=== PATIENT | female | born 1980 | race Caucasian/White ===

== ENCOUNTER 2021-06-20 11:09 | Outpatient (CLI) | payer OTHER, SELFPAY ==
--- NOTE | ~2021-06-20 | XR_ITS ---
EXAMINATION: [id number] INDICATION: Rib pain, pleurodynia TECHNIQUE: A frontal view of the chest and 3 views of the right ribs were obtained. COMPARISON: None. FINDINGS: The lungs are free of acute opacities. There is no pleural effusion or pneumothorax. The ca rdiomediastinal silhouette is normal. The visualized bones and soft tissues are unremarkable. No disp laced rib fracture is identified. IMPRESSION: 1. No acute cardiopulmonary abnormality or evidence of displaced rib fracture. Reviewed, dictated and finalized at location B.
== END 2021-06-20 11:10 | disposition home or self-care (01) ==
LOC: ANHIMG 11:15
PROVIDERS: PCP Nurse Practitioner Family; Visit Provider Nurse Practitioner Family
DX: R07.81 Pleurodynia (principal)
CPT/HCPCS: 71101

== ENCOUNTER 2021-12-11 10:00 | Emergency (ER) | payer OTHER, SELFPAY ==
--- NOTE | 2021-12-11 10:06 | ED.URI ---
HPI - URI/Sore Throat General Chief Complaint: Upper Respiratory Infection Stated Complaint: throat irritation,ears popping Time Seen by Provider: 12/11/21 10:23 Source: patient and RN notes reviewed Mode of arrival: ambulatory Limitations: no limitations History of Present Illness HPI Narrative: 31-year-old female presents with concern for cough, lower throat pain with coughing. Reports her daughter was tested for strep and COVID last week and tested positive for strep, negative for COVID. Patient denies sore throat, however is concerned for strep throat due to her exposure. She denies exposure to COVID. She reports she was sent home from work because she was coughing. She denies any [id number] intervention. Denies fever, bodies, chills, sweats. MD elicited complaint: cough Related Data Home Medications Medication Instructions Recorded Confirmed medroxyprogesterone [Depo-Provera 150 mg IM [id number] 12/11/21 12/11/21 Contraceptive] Allergies Allergy/AdvReac Type Severity Reaction Status Date / Time No Known Allergies Allergy Verified 12/11/21 10:20 Review of Systems Review of Systems: CONSTITUTIONAL: Denies malaise, chills, sweats, or fever. EYES: Denies visual changes, redness, or discharge. ENT: Reports rhinorrhea, congestion, lower throat pain. Denies sinus pain, otalgia and sore throat. CARDIOVASCULAR: Denies chest pain, palpitations, or edema. RESPIRATORY: Reports cough. Denies dyspnea. GASTROINTESTINAL: Denies abdominal pain, nausea, vomiting, diarrhea SKIN: Denies rash or itching. MUSCULOSKELETAL: Denies myalgia. NEUROLOGIC: Denies headache. All systems reviewed & are unremarkable except as noted in HPI and below PMFSH Family History Family History (Updated 09/03/18 @ 09:46 by DOCTOR UNKNOWN) Grandparent Diabetes mellitus Mother Patient's mother is in good health Father Patient's father is in good health Comments At time of signature, agree with nursing past medical, surgical, social and family history. There is no relevant family history pertinent to the presenting complaint Exam Narrative: GENERAL: Well-appearing, well-nourished, and in no acute distress. HEAD: Normocephalic EYES: PERRLA, conjunctivae clear ENT: Nares clear, clear discharge. Mucous membranes moist. TM pearly deng with dull light reflex bilaterally; no tragal tenderness. Oropharynx not erythematous without lesions. Tonsils not enlarged and without exudate, no drooling, no hoarseness, no trismus, uvula midline. NECK: Supple. No lymphadenopathy CHEST: Clear to auscultation, breath sounds equal. No wheezing, rhonchi, rales, or stridor. No respiratory distress, speaks in full sentences. HEART: Regular rate and rhythm. No murmur heard. SKIN: Warm, dry, no rash. NEURO: Alert and oriented x3. PSYCH: Normal mood and affect Course Course Emergency Course: Patient is aware of diagnosis, understands and agrees to treatment plan. Anticipatory guidance given. Patient agrees to follow-up as directed and is aware of reasons to seek care at the emergency department. Portions of this record may have been created with voice recognition software Level of Care: Express Care Visit Vital Signs Vital signs: Reviewed. MDM - URI/Sore Throat MDM Narrative Medical decision making narrative: Differential diagnosis considered: Dietrich virus, strep pharyngitis, allergic rhinitis, upper respiratory tract infection, sinusitis, rhinosinusitis, nasopharyngitis. viral pharyngitis, otitis media, otitis externa, pneumonia, bronchitis, viral cough syndrome, viral syndrome, and influenza. Exam findings show no acute concerns or changes; patient is non-toxic appearing and is in no distress. Patient is appropriate for outpatient treatment and follow-up. Lab Data Attestation: I reviewed the patient's lab results. Critical Care Time Critical Care Time Critical Care Time: No Discharge Plan Discharge Clinical Impression: Upper respiratory infection
[2021-12-11 10:14] VITALS: BP 130/88; PULSE 87; RESP 18; TEMP 37.1; O2SAT 100
[2021-12-12 20:41] LABS: SARS-CoV-2 RNA PCR Negative
== END 2021-12-11 10:46 | disposition home or self-care (01) ==
PROVIDERS: Emergency Provider Nurse Practitioner; PCP Nurse Practitioner Family
DX: J06.9 Acute upper respiratory infection, unspecified (principal); Z20.822 Contact with and (suspected) exposure to COVID-19
CPT/HCPCS: 87081; 87880; 99213; C9803; G0463; U0003; U0005

== ENCOUNTER 2022-05-08 11:30 | Emergency (ER) | payer OTHER, SELFPAY ==
[2022-05-08 11:45] VITALS: BP 122/73; PULSE 85; RESP 18; TEMP 36.8; O2SAT 100
--- NOTE | 2022-05-08 12:01 | ED.BACK ---
HPI - Back Pain/Injury General Chief Complaint: Back Pain/Injury Stated Complaint: Neck,Shoulder,Upper Back Pain Time Seen by Provider: 05/08/22 11:50 Source: patient Mode of arrival: ambulatory Limitations: no limitations History of Present Illness HPI Narrative: 41-year-old female presents with complaint of right-sided neck and upper back pain. Reports pain started 3 days ago. Was talking on her phone to left ear and phone began to drop so she flung her neck to the left side to grab phone between neck and shoulder. Reports shooting, sharp pain to right side of neck. Has been taking ibuprofen and Tylenol and applying ice and heat with no relief of pain. Is also using an [id number] muscle cream. Reports that neck feels stiff. Denies numbness tingling, no weakness to upper extremities. All systems reviewed and negative except as noted above. Related Data Home Medications Medication Instructions Recorded Confirmed medroxyprogesterone 150 mg/mL 150 mg IM [id number] 12/11/21 05/08/22 intramuscular suspension Allergies Allergy/AdvReac Type Severity Reaction Status Date / Time No Known Allergies Allergy Verified 05/08/22 11:38 Review of Systems Review of Systems: CONSTITUTIONAL: Denies fever, chills, or sweats. EYES: Denies visual changes, redness, or discharge. ENT: Denies rhinorrhea, congestion, sore throat, or otalgia. CARDIOVASCULAR: Denies chest pain, palpitations, or edema. RESPIRATORY: Denies cough or dyspnea. GASTROINTESTINAL: Denies abdominal pain, nausea, vomiting, or diarrhea. GENITOURINARY: Denies dysuria or hematuria. SKIN: Denies rash or itching. MUSCULOSKELETAL: Denies back pain, joint pain, or myalgia. Reports right-sided neck pain with stiffness. NEUROLOGIC: Denies headache, numbness, or weakness. PSYCHIATRIC: Denies anxiety or depression. All other systems reviewed are negative, except as documented in HPI. [facility] Family History Family History (Updated 09/03/18 @ 09:46 by DOCTOR UNKNOWN) Grandparent Diabetes mellitus Mother Patient's mother is in good health Father Patient's father is in good health Comments At time of signature, agree with nursing past medical, surgical, social and family history. There is no relevant family history pertinent to the presenting complaint. Exam Narrative: GENERAL: This is a well-nourished, well-developed patient, in no apparent distress. HEAD: normocephalic, atraumatic. EYES: PERRL. Sclera clear/white. Vision is grossly intact. EARS: External ears normal NOSE: External nose normal NECK: Neck supple, without lymphadenopathy, masses or thyromegaly. Tenderness to right trapezius muscle to right side of neck extending into right upper back. Range of motion to neck is decreased due to pain. CARDIOVASCULAR: Regular rate and rhythm without murmurs, gallops, or rubs. RESPIRATORY: Clear to auscultation. Breath sounds equal bilaterally. No wheezes, rales, or rhonchi. SKIN: warm, Dry, intact with no suspicious lesions or rash, good texture and turgor. NEURO: awake, alert, and oriented to person, place and time. There were no obvious focal neurologic abnormalities. EXTREMITIES: Normal range of motion to all extremities. Course Course Level of Care: Express Care Visit Vital Signs Vital signs: Vital Signs Temperature 36.8 C 05/08/22 11:45 Pulse Rate 85 05/08/22 11:45 Respiratory Rate 18 05/08/22 11:45 Blood Pressure 122/73 05/08/22 11:45 Pulse Oximetry 100 05/08/22 11:45 Oxygen Delivery Room Air 05/08/22 11:45 Temperature 36.8 C 05/08/22 11:45 Pulse Rate 85 05/08/22 11:45 Respiratory Rate 18 05/08/22 11:45 Blood Pressure 122/73 05/08/22 11:45 Pulse Oximetry 100 05/08/22 11:45 Oxygen Delivery Room Air 05/08/22 11:45 Reviewed MDM - Back Pain/Injury MDM Narrative Medical decision making narrative: Patient is aware of diagnosis, understands and agrees to treatment plan. Anticipatory guidance g
== END 2022-05-08 11:59 | disposition home or self-care (01) ==
PROVIDERS: Emergency Provider Nurse Practitioner Family; PCP Nurse Practitioner Family
DX: S46.811A Strain of other muscles, fascia and tendons at shoulder and upper arm level, right arm, initial encounter (principal); X50.9XXA Other and unspecified overexertion or strenuous movements or postures, initial encounter
CPT/HCPCS: 99213; G0463

== ENCOUNTER 2022-12-15 15:41 | Outpatient (CLI) | payer OTHER, SELFPAY ==
--- NOTE | ~2022-12-15 | XR_ITS ---
EXAMINATION: XR_RIBSBI_CR Exam Date/Time: 12/15/2022 15:58 RN CLINICIAN HISTORY: R L. LOWER LATERAL RIB PAIN, NO INJURIES. Comparison: 06/20/2021. RESULT: Lines, tubes, and devices: None. Lungs and pleura: Diffuse reticulonodular opacities. Cardiothymic silhouette: Stable. Other: No acute osseous or upper abdominal finding. IMPRESSION: Pulmonary opacities may represent bronchiolitis, as can be seen with atypical infection, asthma, aspi ration, and small airways disease. No acute osseous finding in the ribs. Reviewed, dictated and finalized at location K. CLINICIAN IMPRESSION: Pulmonary opacities may represent bronchiolitis, as can be seen with atypical i nfection, asthma, aspiration, and small airways disease. No acute osseous findi ng in the ribs.
== END 2022-12-15 15:42 | disposition home or self-care (01) ==
PROVIDERS: PCP Nurse Practitioner Family; Visit Provider Nurse Practitioner Family
DX: R07.81 Pleurodynia (principal); R91.8 Other nonspecific abnormal finding of lung field
CPT/HCPCS: 71110

== ENCOUNTER 2023-04-30 11:52 | Emergency (ER) | payer OTHER, SELFPAY ==
[2023-04-30 12:22] VITALS: BP 106/68; PULSE 96; RESP 18; TEMP 37.2; O2SAT 98
--- NOTE | 2023-04-30 12:48 | ED.ABDPAIN ---
HPI - Abdominal Pain General Chief Complaint: Abdominal Pain Stated Complaint: lt side pain Time Seen by Provider: 04/30/23 13:07 Source: patient, RN notes reviewed and old records reviewed Mode of arrival: ambulatory Limitations: no limitations History of Present Illness HPI narrative: 42-year-old female presents to the [facility] with left abdominal pain. Patient states that at 9:30 a.m. this morning started with sharp left lower quadrant abdominal pain. Denies any urinary symptoms. States it has just been getting worse only thing that makes it better is lying flat. Denies any blood in her urine. States she had a normal bowel movement last night. Denies any flank pain. Denies fevers. Onset (ago): hour(s) Related Data Home Medications Medication Instructions Recorded Confirmed medroxyprogesterone 150 mg/mL 150 mg IM [id number] 12/11/21 04/30/23 intramuscular suspension Allergies Allergy/AdvReac Type Severity Reaction Status Date / Time No Known Allergies Allergy Verified 04/30/23 12:42 Review of Systems Review of Systems: All systems reviewed & are unremarkable except as noted in HPI and below Constitutional: Constitutional: Reports no additional constitutional complaints Eyes: Eyes: Reports no additional eye complaints ENT: Reports system reviewed and no additional complaints, except as documented Cardiovascular: Cardiovascular: Reports no additional cardiovascular complaints, Denies chest pain and Denies dyspnea Respiratory: Respiratory: Reports no additional respiratory complaints, Denies chest congestion, Denies cough and Denies dyspnea Gastrointestinal: Gastrointestinal: Reports as per HPI, Reports abdominal pain (Left lower), Denies nausea and Denies vomiting Musculoskeletal: Musculoskeletal: Reports no additional musculoskeletal complaints Integumentary/Breasts: Skin/Breast: Reports system reviewed and no additional complaints, except as docu Neurologic: Reports system reviewed and no additional complaints, except as documented Psychiatric: Psychiatric: Reports no additional psychiatric complaints Allergic/Immunologic: Allergic/Immunologic: Reports no additional allergic/immunologic complaints [facility] Family History Family History Grandparent Diabetes mellitus Mother Patient's mother is in good health Father Patient's father is in good health Comments At the time of my signature, I reviewed and agree with the nursing past medical, surgical, social, and family history. There is no relevant family history pertinent to the patient complaint. Exam Const: General: cooperative, healthy appearing, comfortable, no acute distress, well developed, alert and well nourished Nutritional Appearance: well nourished Orientation/consciousness: patient oriented x3 Limitations: no limitations HENMT: Head: normal to inspection Ears: hearing grossly normal bilaterally and external ears normal Face/Nose/Sinus: Normal external nose present, Normal nares present, Normal nasal mucous membranes and turbinates present and normal facial exam Face and sinus: normal facial exam Mouth: Yes Normal oral and palatal mucosa present, Yes lip normal and Yes moist mucous membranes Throat: posterior oropharynx normal and uvula midline Eyes: General: appearance normal, both eyes and all related structures Alignment and Position: alignment normal Periorbital: periorbital findings normal Pupils: Equal, round and reactive pupils present EOM: EOMs intact bilaterally Neck: Neck: normal visual inspection, full ROM, no lymphadenopathy and no meningeal signs Chest: Chest palpation & inspection: normal inspection of the chest Resp: Effort & Inspection: normal respiratory effort and able to speak in complete sentences Auscultation: clear to auscultation bilaterally, no crackles, no rales, no rhonchi and no wheezes Cardio: Rate: regular rate Rhythm: regular rhythm GI: I
== END 2023-04-30 13:30 | disposition short-term general hospital (02) ==
PROVIDERS: Emergency Provider Nurse Practitioner; PCP Nurse Practitioner Family
DX: R10.32 Left lower quadrant pain (principal)
CPT/HCPCS: 99212; G0463

== ENCOUNTER 2023-05-07 08:47 | Emergency (ER) | payer OTHER, SELFPAY ==
[2023-05-07 08:56] VITALS: BP 120/76; PULSE 100; RESP 19; TEMP 36.1; O2SAT 100
--- NOTE | 2023-05-07 11:13 | ED.NECK ---
HPI - Neck Pain/Injury General Chief Complaint: Neck Pain/Injury Stated Complaint: neck pain Time Seen by Provider: 05/07/23 10:06 Source: patient Mode of arrival: ambulatory Limitations: no limitations History of Present Illness HPI Narrative: Patient is 42 years old white female presents with pain and stiffness at the right side of her neck started 3 days ago, gradually getting worse. Is not getting better on home medications. 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 Patient denies any fever, chills, nausea, vomiting, trauma, difficulty breathing or swallowing stroke team MD complaint: neck pain Related Data Home Medications Medication Instructions Recorded Confirmed medroxyprogesterone 150 mg/mL 150 mg IM [id number] 12/11/21 04/30/23 intramuscular suspension Allergies Allergy/AdvReac Type Severity Reaction Status Date / Time No Known Allergies Allergy Verified 04/30/23 12:42 Review of Systems Review of Systems: All systems reviewed & are unremarkable except as noted in HPI and below PMFSH Family History Family History Grandparent Diabetes mellitus Mother Patient's mother is in good health Father Patient's father is in good health Exam Narrative: General appearance: Well-developed, well-nourished Skin: Normal color Head: Normocephalic, nontraumatic Eyes: Clear conjunctiva ENT: Oropharynx normal, ears normal, nose normal Neck: Diffuse tenderness right side of neck, spasm, no bruises, no rash, no lymphadenopathy, no mass, limited range of motion because of pain, diffuse pain right upper back with palpation Chest and respiratory: Airway patent, no respiratory distress, no accessory muscle use Heart: Regular rate/rhythm Abdomen: Soft, nontender, no organomegaly, quiet bowel sounds Vascular: Normal peripheral pulses, normal capillary refill. 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 Moderate improvement after ibuprofen and Tylenol orally prior to discharge Reevaluation(s) Reevaluation #1: Moderate improvement after ibuprofen and Tylenol orally prior to discharge Date: 05/07/23 Time: 11:28 Vital Signs Vital signs: Vital Signs Temperature 36.1 C L 05/07/23 08:56 Pulse Rate 100 05/07/23 08:56 Respiratory Rate 19 05/07/23 08:56 Blood Pressure 120/76 05/07/23 08:56 Pulse Oximetry 100 05/07/23 08:56 Oxygen Delivery Room Air 05/07/23 08:56 Temperature 36.1 C L 05/07/23 08:56 Pulse Rate 84 05/07/23 11:39 Respiratory Rate 16 05/07/23 11:39 Blood Pressure 142/84 H 05/07/23 11:39 Pulse Oximetry 98 05/07/23 11:39 Oxygen Delivery Room Air 05/07/23 08:56 MDM - Neck Pain/Injury MDM Narrative Medical decision making narrative: Patient presents with right-sided neck pain started 3 days ago, physical examination showed diffuse tenderness and spasm of the right side of neck, no other significant abnormalities. Differential diagnosis include strain/sprain. Patient probably slept wrong, been working for the last 12 months holding phone on the left side of her neck with constant tilting. No blood work-up or imaging required at this time. The plan to discharge patient on anti-inflammatory medication, muscle relaxant, neck exercise and excuse of work for the next 2 days. Differential Diagnosis Differential diagnosis: Likely disc disorder of cervical region and strain of neck muscle Critical Care
--- NOTE | 2023-05-07 11:20 | PC.NURSE ---
Report received from Fabienne WISDOM
[2023-05-07] MEDS: IBUPROFEN 600 MG TABLET PO (11:21)
[2023-05-07] MEDS: ACETAMINOPHEN 325 MG TABLET 650 MG PO (11:21)
[2023-05-07 11:39] VITALS: BP 142/84; PULSE 84; RESP 16; O2SAT 98
== END 2023-05-07 11:39 | disposition home or self-care (01) ==
PROVIDERS: Emergency Provider Emergency Medicine; PCP Nurse Practitioner Family
DX: S16.1XXA Strain of muscle, fascia and tendon at neck level, initial encounter (principal); X50.9XXA Other and unspecified overexertion or strenuous movements or postures, initial encounter
CPT/HCPCS: 99283; A9270

== ENCOUNTER 2024-01-21 15:09 | Emergency (ER) | payer OTHER, SELFPAY ==
--- NOTE | 2024-01-21 15:20 | ED.URI ---
HPI - URI/Sore Throat General Chief Complaint: Upper Respiratory Infection Stated Complaint: sorethroat,cough Time Seen by Provider: 01/21/24 15:20 Source: patient Mode of arrival: ambulatory Limitations: no limitations History of Present Illness HPI Narrative: Patient is a 43-year-old female who presents with 2 days of cough, congestion, fever, chills, sore throat and headache. 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 Denies any nausea, vomiting, diarrhea. Related Data Home Medications Medication Instructions Recorded Confirmed medroxyprogesterone 150 mg/mL 150 mg IM [id number] 12/11/21 01/21/24 intramuscular suspension Allergies Allergy/AdvReac Type Severity Reaction Status Date / Time No Known Allergies Allergy Verified 01/21/24 15:26 Review of Systems Review of Systems: All systems reviewed & are unremarkable except as noted in HPI and below Constitutional: Constitutional: Denies body ache(s), Reports chills, Denies fatigue, Reports fever(s), Denies headache(s), Denies malaise and Denies weakness Eyes: Eyes: Denies blurry vision, Denies itchy eyes and Denies loss of vision ENT: Denies otalgia, Denies headache(s), Reports nasal congestion, Denies sinus pain and Reports sore throat Cardiovascular: Cardiovascular: Denies chest pain, Denies irregular heart rhythm and Denies dyspnea Respiratory: Respiratory: Reports cough and Denies dyspnea Gastrointestinal: Gastrointestinal: Denies abdominal pain, Denies diarrhea, Denies nausea and Denies vomiting Musculoskeletal: Musculoskeletal: Denies back pain, Denies myalgias and Denies arthralgias Integumentary/Breasts: Skin/Breast: Denies pruritus and Denies rash Neurologic: Denies headache(s), Denies loss of vision and Denies weakness Psychiatric: Psychiatric: Reports no additional psychiatric complaints Endocrine: Endocrine: Denies fatigue Allergic/Immunologic: Allergic/Immunologic: Denies itchy eyes PMFSH Family History Family History Grandparent Diabetes mellitus Mother Patient's mother is in good health Father Patient's father is in good health Comments At time of signature, agree with nursing past medical, surgical, social and family history. There is no relevant family history pertinent to the presenting complaint. Exam Const: General: cooperative, healthy appearing, comfortable, no acute distress and well nourished Nutritional Appearance: well nourished Orientation/consciousness: patient oriented x3 Limitations: no limitations HENMT: Head: normal to inspection, normocephalic and atraumatic Ears: hearing grossly normal bilaterally, external ears normal, TM's normal bilaterally, EAC's normal and no periauricular adenopathy Face/Nose/Sinus: Normal external nose present, Abnormal mucous membranes and turbinates present erythematous bilateral and diffuse, normal facial exam, sinuses nontender and face symmetric Face and sinus: normal facial exam, sinuses nontender and face symmetric Mouth: Yes Normal oral and palatal mucosa present, Yes lip normal, Yes tongue normal, Yes Normal salivary glands and ducts present, Yes oropharynx normal and Yes moist mucous membranes Teeth and gingiva: dentition normal Throat: posterior oropharynx normal, tonsils normal and uvula midline Eyes: General: appearance normal, both eyes and all related structures Alignment and Position: alignment normal and position normal Periorbital: periorbital findings normal Eyelids: eyelids normal Pupils: Equal, round and reactive pupils present Neck: Neck: normal visual inspection, full ROM, no lymphadenopathy and supple Chest: Chest palpation & inspection: normal inspection of the chest and normal palpation of entire chest wall Resp: Effort & Inspection: normal respiratory effort and able to speak in complete sentences Auscultation: clear to auscultation bilaterally, no crackles, no r
[2024-01-21 15:24] VITALS: BP 128/66; PULSE 99; RESP 18; TEMP 37.1; O2SAT 98
[2024-01-21 15:27] VITALS: BP 128/66; PULSE 99; RESP 18; TEMP 37.1; O2SAT 98
== END 2024-01-21 16:05 | disposition home or self-care (01) ==
PROVIDERS: Emergency Provider Nurse Practitioner Family
DX: J10.1 Influenza due to other identified influenza virus with other respiratory manifestations (principal); Z20.822 Contact with and (suspected) exposure to COVID-19
CPT/HCPCS: 87081; 87426; 87804; 87880; 99213; G0463

== ENCOUNTER 2024-02-05 00:47 | Emergency (ER) | payer OTHER, SELFPAY ==
--- NOTE | ~2024-02-05 | XR_ITS ---
Clinical Indication: Cough PA and lateral views of the chest: Comparison: None Findings: The lungs are clear, without evidence of focal consolidation or pleural effusion. Cardiome diastinal silhouette is within normal limits. Bones and soft tissues are unremarkable. Impression: Normal chest. Reviewed, dictated and finalized at location . [employer] Impression: Normal chest.
[2024-02-05 00:50] VITALS: BP 135/79; PULSE 72; RESP 19; TEMP 36.2; O2SAT 100
[2024-02-05 02:08] LABS: Strep Group A RT-PCR NOT DETECTED (Negative)
[2024-02-05 02:19] LABS: Influenza A QL RT-PCR Negative (Negative); Influenza B QL RT-PCR Negative (Negative); RSV RNA, RT-PCR Negative (Negative); SARS-CoV-2 RNA PCR Negative (Negative)
--- NOTE | 2024-02-05 02:40 | ED.URI ---
HPI - URI/Sore Throat General Chief Complaint: Upper Respiratory Infection Stated Complaint: sore throat/ URI sx Time Seen by Provider: 02/05/24 01:53 History of Present Illness HPI Narrative: 43-year-old female presents to the emergency department for sore throat and cough today. Patient states 2 weeks ago she texted positive for the flu and since then she has been feeling poorly. States she woke up today with a sore throat worsening cough which prompted her to come to the ER. States her primary gave her an albuterol inhaler with some improvement. States she smoked a pack a day for 20 years with stop smoking 2 weeks ago when she tested positive for the flu. Denies diagnosis of asthma or COPD. Denies chest pain, abdominal pain, nausea vomiting, fever. She is requesting a breathing treatment. Related Data Home Medications Medication Instructions Recorded Confirmed medroxyprogesterone 150 mg/mL 150 mg IM [id number] 12/11/21 01/21/24 intramuscular suspension Allergies Allergy/AdvReac Type Severity Reaction Status Date / Time No Known Allergies Allergy Verified 02/05/24 00:47 Review of Systems Review of Systems: CONSTITUTIONAL: Denies fever, chills, or sweats. EYES: Denies visual changes, redness, or discharge. ENT: Denies rhinorrhea, congestion, sore throat, or otalgia. CARDIOVASCULAR: Denies chest pain, palpitations, or edema. RESPIRATORY: See HPI GASTROINTESTINAL: Denies abdominal pain, nausea, vomiting, or diarrhea. GENITOURINARY: Denies dysuria or hematuria. SKIN: Denies rash or itching. MUSCULOSKELETAL: Denies back pain, joint pain, or myalgia. NEUROLOGIC: Denies headache, numbness, or weakness. PSYCHIATRIC: Denies anxiety or depression. [facility] Family History Family History Grandparent Diabetes mellitus Mother Patient's mother is in good health Father Patient's father is in good health Exam Narrative: GENERAL: Well-appearing, well-nourished, and in no acute distress. HEAD: Normocephalic, atraumatic. EYES: PERRLA and EOMI. ENT: Nares clear, no rhinorrhea or epistaxis. Mucous membranes moist. Posterior pharynx with erythema. Uvula midline no tonsillar hypertrophy or exudates. No trismus. Tolerating secretions. Bilateral TMs are deng nonbulging normal canals. NECK: Supple. CHEST: Rhonchi in the left lung with questionable fine crackles in the left lower lung. Patient is satting 100% on room air no respiratory distress. No wheezing. HEART: Regular rate and rhythm. No murmur heard. Normal peripheral pulses. ABDOMEN: Soft, nontender, nondistended, normal active bowel sounds. EXTREMITIES: Normal range of motion. No edema. SKIN: Warm, dry, no rash. NEURO: No focal deficits. Alert and oriented x3 Course Vital Signs Vital signs: Vital Signs Temperature 97.2 F L 02/05/24 00:50 Pulse Rate 72 02/05/24 00:50 Respiratory Rate 19 02/05/24 00:50 Blood Pressure 135/79 02/05/24 00:50 Pulse Oximetry 100 02/05/24 00:50 Oxygen Delivery Room Air 02/05/24 00:50 Temperature 97.2 F L 02/05/24 00:50 Pulse Rate 66 02/05/24 02:55 Respiratory Rate 18 02/05/24 02:55 Blood Pressure 135/79 02/05/24 00:50 Pulse Oximetry 100 02/05/24 00:50 Oxygen Delivery Room Air 02/05/24 00:50 MDM - URI/Sore Throat MDM Narrative Medical decision making narrative: 43-year-old female presents to the emergency department for sore throat and cough. See HPI for further history. Triage vital stable. She is satting 100% on room air and afebrile. Lung sounds with rhonchi and possible rales in the left lower lung. COVID, flu, RSV and strep were negative. Chest x-ray shows no acute cardiopulmonary abnormality. Given significant smoking history and lung sounds, will start her on doxycycline and provide prednisone. She has an albuterol inhaler which encouraged her to take. She received a DuoNeb in the ER with and improvement in
[2024-02-05] MEDS: IPRATROPIUM 0.5 MG/ALBUTEROL SULFATE 2.5 MG AMPUL.NEB 3 ML INHALATION (02:49)
[2024-02-05 02:55] VITALS: PULSE 66; RESP 18
[2024-02-05 03:10] VITALS: PULSE 70; RESP 18
[2024-02-05] MEDS: DOXYCYCLINE HYCLATE 100 MG TABLET PO (03:19)
[2024-02-05 03:25] VITALS: BP 132/74; PULSE 87; RESP 16; O2SAT 99
== END 2024-02-05 03:26 | disposition home or self-care (01) ==
PROVIDERS: Emergency Medicine; Emergency Provider Physician Assistant
DX: J40 Bronchitis, not specified as acute or chronic (principal); J02.9 Acute pharyngitis, unspecified; Z20.822 Contact with and (suspected) exposure to COVID-19; Z87.891 Personal history of nicotine dependence
CPT/HCPCS: 71046; 87637; 87651; 94640; 99283; A9270

== ENCOUNTER 2024-03-21 16:49 | Emergency (ER) | payer BC, SELFPAY ==
--- NOTE | ~2024-03-21 | XR_ITS ---
EXAM: XR abdomen/kub 1V DATE: 03/21/2024 17:27 HISTORY: Right flank pain . COMPARISON: None available. FINDINGS: Clear lung bases. Normal bowel gas pattern. No organomegaly. No abnormal abdominal calcifi cation. Pelvic phleboliths. Regional bones and soft tissues normal for age. IMPRESSION: Unremarkable abdominal radiograph findings. Reviewed, dictated and finalized at location K.
[2024-03-21 17:01] VITALS: BP 122/91; PULSE 88; RESP 18; TEMP 36.6; O2SAT 99
--- NOTE | 2024-03-21 17:18 | ED.FEMALEGU ---
HPI - Female Genitourinary General Chief complaint: Urogenital-Female Stated complaint: R flank pain Time Seen by Provider: 03/21/24 17:20 Source: patient and RN notes reviewed Mode of arrival: ambulatory Limitations: no limitations History of Present Illness HPI Narrative: 43-year-old female presents with concern for right flank and groin pain, suprapubic pressure, difficulty urinating, less urine output, chills, sweats. She reports dark-colored urine. She denies history of kidney stones. She denies fever. She denies nausea or vomiting MD elicited complaint: flank pain Related Data Home Medications Medication Instructions Recorded Confirmed medroxyprogesterone 150 mg/mL 150 mg IM [id number] 12/11/21 01/21/24 intramuscular suspension Allergies Allergy/AdvReac Type Severity Reaction Status Date / Time No Known Allergies Allergy Verified 03/21/24 17:09 Review of Systems Review of Systems: CONSTITUTIONAL: Denies malaise, fever. Reports chills and sweats CARDIOVASCULAR: Denies chest pain, palpitations, or edema. RESPIRATORY: Denies cough or dyspnea. GASTROINTESTINAL: Denies abdominal pain, nausea, vomiting, diarrhea GENITOURINARY: Denies dysuria, frequency, urgency. Reports difficulty urinating, less urine output, suprapubic pressure, right flank pain, right groin pain, dark colored urine SKIN: Denies rash or itching. MUSCULOSKELETAL: Denies back pain or myalgia. All systems reviewed & are unremarkable except as noted in HPI and below PMFSH Family History Family History Grandparent Diabetes mellitus Mother Patient's mother is in good health Father Patient's father is in good health Comments At time of signature, agree with nursing past medical, surgical, social and family history. There is no relevant family history pertinent to the presenting complaint Exam Narrative: GENERAL: Nontoxic-appearing, appears to be in pain, and in no acute distress. HEAD: Normocephalic. EYES: PERRLA, conjunctivae clear. NECK: Supple. No lymphadenopathy CHEST: Clear to auscultation. No respiratory distress. HEART: Regular rate SKIN: Warm, dry, no rash. NEURO: Alert and oriented x3. PSYCH: Normal mood and affect Course Course Emergency Course: Patient is aware of, understands and agrees to be transferred to the emergency room. Patient agrees to proceed directly to the emergency department. Portions of this record may have been created with voice recognition software Level of Care: Express Care Visit Vital Signs Vital signs: Vital Signs Temperature 97.8 F 03/21/24 17:01 Pulse Rate 88 03/21/24 17:01 Respiratory Rate 18 03/21/24 17:01 Blood Pressure 122/91 H 03/21/24 17:01 Pulse Oximetry 99 03/21/24 17:01 Oxygen Delivery Room Air 03/21/24 17:01 Temperature 97.8 F 03/21/24 17:01 Pulse Rate 88 03/21/24 17:01 Respiratory Rate 18 03/21/24 17:01 Blood Pressure 122/91 H 03/21/24 17:01 Pulse Oximetry 99 03/21/24 17:01 Oxygen Delivery Room Air 03/21/24 17:01 Reviewed. Transfer Transfered to: Other ([facility]) Transportation: Other (Private vehicle) Transfer rationale: Flank pain Accepting physician: Landen MDM - Female Genitourinary MDM Narrative Medical decision making narrative: Exam findings and UA warrant further evaluation emergency room; patient is non-toxic appearing and is in no distress. Differential Diagnosis Differential diagnosis: Likely urinary tract infection and cystitis Lab Data Labs: Urine Characteristics Cloudy Imaging Data My impression: Images reviewed, interpreted by radiologist, agree, see report. Radiologist's impression: EXAM:? XR abdomen/kub 1V DATE: 03/21/2024 17:27 HISTORY: Right flank pain . COMPARISON:? None available. FINDINGS:? Clear lung bases. Normal bowel gas pattern
== END 2024-03-21 17:46 | disposition short-term general hospital (02) ==
PROVIDERS: Emergency Provider Nurse Practitioner; PCP Nurse Practitioner Family
DX: R10.9 Unspecified abdominal pain (principal)
CPT/HCPCS: 74018; 81003; 99213; G0463